=== PATIENT | male | born 1960 | race African-American/Black ===

== ENCOUNTER 2017-08-08 08:38 | Emergency (ER) | payer MEDICARE ==
[~2017-08-08] VITALS: Ht 188 cm; Wt 127.0 kg
[~2017-08-08 08:38] MED LIST: GLIP-115 PO; METF-370 PO
[2017-08-08 09:16] VITALS: BP 127/78
== END 2017-08-08 09:34 | disposition home or self-care (01) ==
LOC: ER 08:38
DX: J02.9 Acute pharyngitis, unspecified (principal); E11.9 Type 2 diabetes mellitus without complications; Z79.899 Other long term (current) drug therapy

== ENCOUNTER 2017-12-28 15:05 | Emergency (ER) | payer MEDICARE ==
[~2017-12-28] VITALS: Ht 185.4 cm; Wt 131.5 kg
[2017-12-28 15:05] VITALS: BP 143/90
== END 2017-12-28 17:15 | disposition home or self-care (01) ==
LOC: ER 15:11
DX: R04.0 Epistaxis (principal); E11.9 Type 2 diabetes mellitus without complications; M10.9 Gout, unspecified; I11.0 Hypertensive heart disease with heart failure; E78.5 Hyperlipidemia, unspecified; Z79.899 Other long term (current) drug therapy
CPT/HCPCS: 82962

== ENCOUNTER 2018-08-09 12:34 | Emergency (ER) | payer MEDICARE, OTHER ==
[~2018-08-09] VITALS: Ht 182.9 cm; Wt 128.4 kg
[2018-08-09 13:33] LABS: Basophils # (auto) 0.2 uL; Basophils % (auto) 4.1 % (0.0-2.0); Eosinophils # (auto) 0.1 uL; Eosinophils % (auto) 1.6 % (0.0-7.0); Hematocrit 42.6 % (41.0-53.0); Hemoglobin 14.3 g/dL (13.5-17.5); Lymphocytes # (auto) 2.3 uL; Lymphocytes % (auto) 51.7 % (10.0-50.0); Mean Corpuscular Hemoglobin 30.9 pg (28.0-32.0); Mean Corpuscular Hgb Conc. 33.6 g/dL (32.0-36.0); Mean Corpuscular Volume 91.9 fL (80.0-100.0); Monocytes # (auto) 0.4 uL; Monocytes % (auto) 8.7 % (0.0-12.0); Neutrophils # (auto) 1.5 uL; Neutrophils % (auto) 33.9 % (37.0-80.0); Nucleated Red Blood Cells % 0.2 %; Platelet Count (auto) 217 10^3/uL (140-450); Red Blood Cells 4.64 10^6/uL (4.5-5.90); White Blood Cell 4.4 10^3/uL (4.4-10.8)
[2018-08-09] MEDS ORDERED: NICARDIPINE 25MG/250ML BAG KIT 250 ML IV SCH (14:00)
[2018-08-09] MEDS ORDERED: LEVETIRACETAM INJ 1,000 MG in D5W 5% 100 ML IV ONE (14:00)
[2018-08-09 14:19] VITALS: BP 133/98
[2018-08-09] MEDS ORDERED: cloNIDine HCL 0.1 MG TAB ONE (14:19)
[2018-08-09] MEDS ORDERED: cloNIDine HCL 0.1 MG TAB PO ONE (14:30)
[2018-08-09 15:29] LABS: Alanine Aminotransferase 40 U/L (16-61); Albumin 3.9 g/dL (3.4-5.0); Anion Gap 8 (5-15); Aspartate Aminotransferase 20 U/L (15-37); Blood Urea Nitrogen 15 mg/dL (7-18); Calcium 8.8 mg/dL (8.5-10.1); Carbon Dioxide 21 mmol/L (21-32); Chloride 106 mmol/L (98-107); Glucose 128 mg/dL (74-106); Magnesium 2.1 mg/dL (1.6-2.6); Potassium 3.9 mmol/L (3.5-5.1); Sodium 135 mmol/L (136-145)
[2018-08-09 15:34] LABS: Alkaline Phosphatase 70 U/L (45-117); Bilirubin, Total 0.3 mg/dL (0.2-1.0); GFR African American 106 mL/min; GFR Non-African American 88 mL/min; Total Protein 8.3 g/dL (6.4-8.2)
== END 2018-08-09 14:32 | disposition home or self-care (01) ==
LOC: ER 12:36
DX: I60.9 Nontraumatic subarachnoid hemorrhage, unspecified (principal); I10 Essential (primary) hypertension; E11.9 Type 2 diabetes mellitus without complications; E78.5 Hyperlipidemia, unspecified; M10.9 Gout, unspecified
CPT/HCPCS: 36415; 70450; 80053; 83735; 84484; 85025; 93005; 99291; J1953; J7060